=== PATIENT | male | born 1925 | race Caucasian/White ===

== ENCOUNTER 2017-01-02 07:07 | Emergency (ER) | payer MEDICARE, MEDICAID ==
[2017-01-02] MEDS ORDERED: oxyCODONE 5 MG TABLET PO STA (07:42)
[2017-01-02] MEDS ORDERED: oxyCODONE 5 MG TABLET ONE (07:47)
== END 2017-01-02 11:05 | disposition home or self-care (01) ==
DX: S70.01XA Contusion of right hip, initial encounter (principal); S00.83XA Contusion of other part of head, initial encounter; W18.30XA Fall on same level, unspecified, initial encounter; R03.0 Elevated blood-pressure reading, without diagnosis of hypertension; G70.00 Myasthenia gravis without (acute) exacerbation; D64.9 Anemia, unspecified; N28.9 Disorder of kidney and ureter, unspecified; I51.7 Cardiomegaly; I49.3 Ventricular premature depolarization
CPT/HCPCS: 36415; 73502; 73700; 80048; 84484; 85025; 93005; 99283; 99284; A9270